=== PATIENT | female | born 1960 | race Caucasian/White ===

== ENCOUNTER 2023-03-23 10:38 | Emergency (ER) | payer BC, OTHER ==
[~2023-03-23] VITALS: Ht 165.1 cm; Wt 79.4 kg
[2023-03-23 11:03] VITALS: TEMP 98.4
[2023-03-23] MEDS ORDERED: CYCL5TAB PO (12:53)
[2023-03-23] MEDS ORDERED: IBUP-1955 PO (12:53)
[2023-03-23] MEDS ORDERED: ACETAMINOPHEN ES 500 MG TABLET ONE (13:05)
[2023-03-23 13:10] VITALS: BP 145/96; O2SAT 100
[2023-03-23] MEDS ORDERED: ACETAMINOPHEN ES 500 MG TABLET PO ONE (13:30)
== END 2023-03-23 13:10 | disposition home or self-care (01) ==
LOC: ER 10:51
DX: S16.1XXA Strain of muscle, fascia and tendon at neck level, initial encounter (principal); S13.4XXA Sprain of ligaments of cervical spine, initial encounter; R51.9 Headache, unspecified; F41.9 Anxiety disorder, unspecified; Z90.49 Acquired absence of other specified parts of digestive tract; Z88.8 Allergy status to other drugs, medicaments and biological substances; V89.2XXA Person injured in unspecified motor-vehicle accident, traffic, initial encounter; Y93.89 Activity, other specified; Y92.89 Other specified places as the place of occurrence of the external cause; Y99.8 Other external cause status
CPT/HCPCS: 99284; 72125; 71045; 70450; L0172